=== PATIENT | female | born 1985 | race Caucasian/White ===

== ENCOUNTER 2023-11-08 11:52 | Emergency (ER) | payer OTHER ==
[2023-11-08 12:32] VITALS: BP 116/80; PULSE 74; RESP 18; TEMP 98; BMI 26.6
[2023-11-08 12:59] LABS: PH,URINE 5.5 (5.0-8.0); URINE APPEARANCE CLEAR; URINE BILIRUBIN NEGATIVE (NEGATIVE); URINE COLOR YELLOW; URINE GLUCOSE (UA) NEGATIVE (NEGATIVE); URINE KETONE NEGATIVE (NEGATIVE); URINE LEUK ESTERASE NEGATIVE (NEGATIVE); URINE NITRITE NEGATIVE (NEGATIVE); URINE PROTEIN NEGATIVE (NEGATIVE); URINE UROBILINOGEN 0.2 mg/dL (0.2-1.0)
[2023-11-08 13:10] LABS: HCG,QUALITATIVE URINE Negative
[2023-11-08] MEDS ORDERED: METHOCARBAMOL 500 MG TABLET PO ONE (14:30)
[2023-11-08] MEDS ORDERED: KETOROLAC TROMETHAMINE 30 MG/1 ML VIAL IM ONE (14:30)
[2023-11-08] MEDS ORDERED: LIDOCAINE 4% PATCH TP ONE ×2 (14:30→14:40)
[2023-11-08] MEDS ORDERED: METHOCARBAMOL 500 MG TABLET ONE (14:40)
[2023-11-08] MEDS ORDERED: KETOROLAC TROMETHAMINE 30 MG/1 ML VIAL ONE (14:40)
[2023-11-08] MEDS ORDERED: LIDOCAINE PATCH REMOVAL MC SCH (22:00)
== END 2023-11-08 17:15 | disposition home or self-care (01) ==
LOC: JERFT 11:52
DX: M54.50 Low back pain, unspecified (principal); R35.0 Frequency of micturition; B07.9 Viral wart, unspecified
CPT/HCPCS: 74176-TC; 81003; 84703; 87086; 99284-25

== ENCOUNTER 2024-01-24 13:25 | Emergency (ER) | payer OTHER ==
[2024-01-24 13:44] VITALS: BP 129/78; PULSE 80; RESP 18; TEMP 97.7; BMI 31.3
[2024-01-24] MEDS ORDERED: LIDOCAINE 4% PATCH TP ONE (14:18)
[2024-01-24] MEDS ORDERED: ACETAMINOPHEN 325 MG TABLET (FP) ONE (14:18)
[2024-01-24] MEDS: LIDOCAINE 5% TOPICAL PATCH TP ONE (14:30)
[2024-01-24] MEDS: ACETAMINOPHEN 325 MG TABLET (FP) PO ONE (14:32)
[2024-01-24 15:56] LABS: EPI CELLS >36 /uL (0-25.1); HCG,QUALITATIVE URINE Negative; HYALINE CASTS 0 /uL (0-3.1); PH,URINE 7.5 (5.0-8.0); URINE APPEARANCE CLEAR; URINE BACTERIA 507 /uL (0-1359); URINE BILIRUBIN NEGATIVE (NEGATIVE); URINE COLOR YELLOW; URINE GLUCOSE (UA) NEGATIVE (NEGATIVE); URINE KETONE TRACE (NEGATIVE); URINE LEUK ESTERASE TRACE (NEGATIVE); URINE NITRITE NEGATIVE (NEGATIVE); URINE PROTEIN NEGATIVE (NEGATIVE); URINE RBC 23 /uL (0-23.9); URINE WBC 5 /uL (0-25.8)
[2024-01-24] MEDS ORDERED: KETOROLAC TROMETHAMINE 15 MG/ML VIAL ONE (17:50)
[2024-01-24] MEDS: KETOROLAC TROMETHAMINE 15 MG/ML VIAL IM ONE (17:59)
[2024-01-24] MEDS ORDERED: CYCLOBENZAPRINE HCL 5 MG TABLET ONE (19:52)
[2024-01-24] MEDS: CYCLOBENZAPRINE HCL 10 MG TABLET (FP) PO ONE (20:37)
[2024-01-24] MEDS ORDERED: LIDOCAINE PATCH REMOVAL MC SCH (22:00)
== END 2024-01-24 21:42 | disposition home or self-care (01) ==
LOC: JER 13:25
PROC: 3E0133Z Introduction of Anti-inflammatory into Subcutaneous Tissue, Percutaneous Approach (ICD-10-PCS; principal; 2024-01-24)
DX: M54.50 Low back pain, unspecified (principal)
CPT/HCPCS: 81003; 84703; 87086; 93971-TC; 99284-25